=== PATIENT | female | born 1990 | race Hispanic/Latino ===

== ENCOUNTER 2017-11-07 05:13 | Emergency (ER) | payer OTHER ==
[2017-11-07 05:22] VITALS: BMI 40.6
[2017-11-07 05:25] VITALS: TEMP 98.7
--- NOTE | 2017-11-07 05:35 | ED PDOC ---
Arrival/HPI - General Historian: Patient - History of Present Illness Time/Duration: 1 hour Symptom Onset: Sudden Symptom Course: Unchanged Quality: Pressure Activities at Onset: Rest - General Chief Complaint: Chest Pain Time Seen by Provider: 11/07/17 05:16 - History of Present Illness Narrative History of Present Illness (Text): 11/07/17 05:32 Pt is a 27 yo F with no significant PMH presents to emergency department due to chest pain. Patient states that she was awoken when chest pain started. Patient states that pain is midsternal and is pressure-like that increases intermittently in intensity. Patient states that this has happened once before in the past, but that episode was brief. Patient states that pain is worsened with deep inspirations and denies any alleviating factors. Patient admits to some epigastric pain as well. Patient is a previous smoker up to 1 ppd, only vapes now. Patient denies any control use, history of diabetes, hypertension, or hyperlipidemia. Patient denies shortness of breath, nausea, vomiting, abdominal pain, fever, chills, headache, or dizziness. (Zeb Armendariz) Past Medical History - Provider Review Nursing Documentation Reviewed: Yes - Psychiatric Hx Psychophysiologic Disorder: No Hx Substance Use: No Family/Social History - Physician Review Nursing Documentation Reviewed: Yes Family/Social History: Other (arrhythmia) Smoking Status: Vape Hx Alcohol Use: Yes Frequency of alcohol use: Socially Hx Substance Use: No Allergies/Home Meds Allergies/Adverse Reactions: Allergies No Known Allergies Allergy (Verified 11/07/17 05:28) Review of Systems - Physician Review All systems were reviewed & negative as marked: Yes (12 point ROS reviewed and is negative other than what is stated in HPI.) Physical Exam Vital Signs Reviewed: Yes Temperature: Afebrile Blood Pressure: Normal Pulse: Regular Respiratory Rate: Normal Appearance: Positive for: Non-Toxic Pain Distress: Moderate Mental Status: Positive for: Alert and Oriented X 3 - Systems Exam Head: Present: Atraumatic, Normocephalic Pupils: Present: PERRL Extroacular Muscles: Present: EOMI Conjunctiva: Present: Normal Mouth: Present: Moist Mucous Membranes Neck: Present: Normal Range of Motion Respiratory/Chest: Present: Clear to Auscultation, Tender to Palpation ( midsternal). No: Wheezes, Rales, Rhonchi Cardiovascular: Present: Regular Rate and Rhythm, Normal S1, S2. No: Murmurs, Rub, Gallop Abdomen: Present: Tenderness (epigastric). No: Distention, Rebound, Guarding Upper Extremity: Present: Normal Inspection. No: Cyanosis, Edema Lower Extremity: Present: Normal Inspection. No: Edema Neurological: Present: GCS=15, CN II-XII Intact, Speech Normal Skin: Present: Warm, Dry, Normal Color. No: Rashes Psychiatric: Present: Alert, Oriented x 3, Normal Insight, Normal Concentration Vital Signs Temp Pulse Resp BP Pulse Ox 11/07/17 05:24 98.7 F 86 18 126/80 100 Medical Decision Making ED Course and Treatment: 11/07/17 Patient Seen With Resident: In agreement with resident note which contains more detail about the patient. Patient was seen and evaluated with resident. Came up with plan and treatment together. (Tariq Scott) 11/07/17 05:39 27 yo F presents to emergency department with reproducible midsternal chest pain. DDx includes ACS vs. costochondritis vs. gastritis/GERD. Plan: - CBC, CMP - Coags - Cardiac ISO - Lipase - EKG - Chest X-ray - POC test - Reassess and disposition 11/07/17 05:40 PERC negative. EKG reviewed, showed rate of 84, NSR. 11/07/17 06:38 Chest X-ray reviewed by myself and shows no acute process. Cardiac workup negative. Protonix, tylenol, and flexeril ordered. 11/07/17 06:56 Lipase negative. Discussed results with patient and explained that cardiac origin of chest pain is likely ruled out. Explained to patient that pain is likely combination of costcochondritis and gastritis. Patient will be given Rx for pepcid and advised to take OTC tylenol for costochondritis. Patient will be discharged to follow up with her PMD. (Zeb Armendariz) - Lab Interpretations Lab Results: 11/07/17 05:30 11/07/17 05:30 Lab Results 11/07/17 05:40: Urine Color Yellow, Urine Appearance Clear, Urine pH 6.0, Ur Specific [place] 1.025, Urine Protein Negative, Urine Glucose (UA) Negative, Urine Ketones Negative, Urine Blood Negative, Urine Nitrate Negative, Urine Bilirubin Negative, Urine Urobilinogen 0.2, Ur Leukocyte Esterase Negative 11/07/17 05:30: Lipase 129 11/07/17 05:30: Sodium 141, Potassium 4.1, Chloride 103, Carbon Dioxide 26, Anion Gap 16, BUN 14, Creatinine 0.6 L, Est GFR ( Amer) > 60, Est GFR ( Non-Af Amer) > 60, Random Glucose 96, Calcium 9.2, Magnesium 1.9, Total Bilirubin 0.4, AST 95 H, ALT 65 H, Alkaline Phosphatase 62, Lactate Dehydrogenase 476, Total Creatine Kinase 54, Troponin I < 0.01, Total Protein 7.6, Albumin 4.6, Globulin 3.0, Albumin/Globulin Ratio 1.5 11/07/17 05:30: PT 11.0, INR 0.96, APTT 33.2 11/07/17 05:30: WBC 7.9, RBC 4.19, Hgb 12.2, Hct 37.0, MCV 88.3, MCH 29.1, MCHC 33.0, RDW 13.6, Plt Count 344, MPV 9.8, Gran % 55.3, Lymph % (Auto) 35.6 H, [place] % (Auto) 6.4 H, Eos % (Auto) 2.3, Baso % (Auto) 0.4, Gran # 4.39, Lymph # ( Auto) 2.8, [place] # (Auto) 0.5, Eos # (Auto) 0.2, Baso # (Auto) 0.03 - RAD Interpretation Radiology Orders: 11/07/17 05:29 CHEST PORTABLE [RAD] Stat - Medication Orders Current Medication Orders: Discontinued Medications Acetaminophen (Tylenol 325mg Tab) 650 mg PO STAT STA Stop: 11/07/17 06:35 Last Admin: 11/07/17 06:43 Dose: 650 mg MAR Pain/Vitals Document 11/07/17 06:43 OBEY (Rec: 11/07/17 06:44 OBEY [id number]) Pain Reassessment Is This A Pain ReAssessment? Yes Location Upper or Lower Upper Pain Location Body Site Chest Description Sharp Pain Behavior Rubbing Site Cyclobenzaprine HCl (Flexeril) 5 mg PO STAT STA Stop: 11/07/17 06:35 Last Admin: 11/07/17 06:45 Dose: 5 mg Pantoprazole Sodium (Protonix Inj) 40 mg IVP STAT STA Stop: 11/07/17 06:35 Last Admin: 11/07/17 06:44 Dose: 40 mg IVP Administration Document 11/07/17 06:44 OBEY (Rec: 11/07/17 06:45 OBEY [id number]) Charges for Administration # of IVP Administrations 1 Disposition/Present on Arrival - Present on Arrival Any Indicators Present on Arrival: No History of DVT/PE: No History of Uncontrolled Diabetes: No Urinary Catheter: No History of Decub. Ulcer: No History Surgical Site Infection Following: None - Disposition Have Diagnosis and Disposition been Completed?: Yes Disposition Time: 06:58 Patient Plan: Discharge - Disposition Diagnosis: Chest pain, Costochondral chest pain, Gastritis Disposition: HOME/ ROUTINE Patient Problems: Current Active Problems Problem Status Onset Chest pain Acute Costochondral chest pain Acute Condition: STABLE Discharge Instructions (ExitCare): Chest Pain That Is Not Caused by the Heart ( DC), Gastritis (DC) Additional Instructions: 1. Follow up with PMD within 3-5 days 2. Take Pepcid daily for acid reflux 3. May use tylenol for pain as needed 4. Return to Emergency department if symptoms worsen [facility] SANON, thank you for letting us take care of you today. Your provider was Tariq Scott MD and you were treated for chest pain. The emergency medical care you received today was directed at your acute symptoms. If you were prescribed any medication, please fill it and take as directed. It may take several days for your symptoms to resolve. Return to the Emergency Department if your symptoms worsen, do not improve, or if you have any other problems. Please contact your doctor or call one of the physicians/clinics you have been referred to that are listed on the Patient Visit Information form that is included in your discharge packet. Bring any paperwork you were given at discharge with you along with any medications you are taking to your follow up visit. Our treatment cannot replace ongoing medical care by a primary care provider outside of the emergency department. Thank you for allowing the [facility] team to be part of your care today. Prescriptions: Famotidine [Pepcid] 40 mg PO DAILY #15 tablet Forms: [facility] (Lebanese)
[2017-11-07 05:57] LABS: URINE BILIRUBIN NEGATIVE (NEGATIVE); URINE BLOOD NEGATIVE (NEGATIVE); URINE GLUCOSE (UA) NEGATIVE (NEGATIVE); URINE LEUKOCYTE ESTERASE NEGATIVE Leu/uL (NEGATIVE); URINE PROTEIN NEGATIVE mg/dL (<30 mg/dL); URINE UROBILINOGEN 0.2 E.U./dL (<1 E.U./dL)
[2017-11-07 06:08] LABS: ALB/GLOB RATIO 1.5 (1.1-1.8); ALBUMIN 4.6 g/dL (3.0-4.8); ALT/SGPT 65 U/L (7-56); AST/SGOT 95 U/L (14-36); BASO # 0.03 K/mm3 (0.0-2.0); BASO % 0.4 % (0.0-3.0); BLOOD UREA NITROGEN 14 mg/dL (7-21); CALCIUM 9.2 mg/dL (8.4-10.5); EOS # 0.2 (0.0-0.7); EOS % 2.3 % (1.5-5.0); GFR AFRICAN-AMERICAN > 60; GFR NON-AFRICAN AMERICAN > 60; GRAN # 4.39 (1.4-6.5); GRAN % 55.3 % (50.0-68.0); HEMOGLOBIN 12.2 g/dL (12.0-16.0); LYMPH # 2.8 (1.2-3.4); LYMPH % 35.6 % (22.0-35.0); MEAN CELL VOLUME 88.3 fl (80.0-105.0); MEAN CORPUSCULAR HEMOGLOBIN 29.1 pg (25.0-35.0); MEAN PLATELET VOLUME 9.8 fl (7.0-11.0); MONO # 0.5 (0.1-0.6); MONO % 6.4 % (1.0-6.0); RBC 4.19 10^6/uL (3.5-6.1); RED CELL DISTRIBUTION WIDTH 13.6 % (11.5-14.5); WHITE BLOOD COUNT 7.9 10^3/ul (4.5-11.0)
[2017-11-07 06:20] LABS: TROPONIN I < 0.01 ng/mL
[2017-11-07 06:24] LABS: INR 0.96 (0.93-1.08); PARTIAL THROMBOPLASTIN TIME 33.2 Seconds (25.1-36.5)
[2017-11-07 06:25] LABS: URINE COLOR YELLOW (YELLOW)
[2017-11-07 06:26] LABS: URINE APPEARANCE CLEAR (CLEAR)
[2017-11-07 07:07] VITALS: BP 133/65; PULSE 80; RESP 17; O2SAT 99
--- NOTE | 2017-11-07 07:30 | RAD ---
HISTORY: chest pain COMPARISON: No prior. FINDINGS: LUNGS: No active pulmonary disease. PLEURA: No significant pleural effusion identified, no pneumothorax apparent. CARDIOVASCULAR: Normal. OSSEOUS STRUCTURES: No significant abnormalities. VISUALIZED UPPER ABDOMEN: Normal. OTHER FINDINGS: None. IMPRESSION: No active disease.
--- NOTE | 2017-11-07 12:48 | CARD ---
APPROVED REPORT EKG Measurement Heart [id number] <Conclusion> Normal sinus rhythm Normal ECG
== END 2017-11-07 07:06 | disposition home or self-care (01) ==
LOC: ED 05:13
DX: R07.1 Chest pain on breathing (principal); K29.70 Gastritis, unspecified, without bleeding
CPT/HCPCS: 71045; 80053; 81003; 82550; 83615; 83690; 83735; 84484; 85025; 85610; 85730; 93005; 96374; 99283; C9113